=== PATIENT | female | born 1955 | race Caucasian/White ===

== ENCOUNTER 2018-01-27 08:37 | Day surgery (SDC) | payer OTHER | END 2018-01-27 11:05 | disposition home or self-care (01) | LOC: ORSCSDS 08:37 | PROVIDERS: Internal Medicine Gastroenterology | PROC: 0DBP8ZX Excision of Rectum, Via Natural or Artificial Opening Endoscopic, Diagnostic (ICD-10-PCS; principal; 2018-01-27 09:45) | PROC: 0DBK8ZX Excision of Ascending Colon, Via Natural or Artificial Opening Endoscopic, Diagnostic (ICD-10-PCS; principal; 2018-01-27 09:45) | DX: Z12.11 Encounter for screening for malignant neoplasm of colon (principal); C20 Malignant neoplasm of rectum; D12.2 Benign neoplasm of ascending colon; Z86.010 Personal history of colon polyps; K57.30 Diverticulosis of large intestine without perforation or abscess without bleeding | CPT/HCPCS: 88305; J1980 ==

== ENCOUNTER → 2022-07-21 | Outpatient (CLI) | payer OTHER | END | disposition home or self-care (01) | LOC: LAB SHORT 16:59 → LAB 16:59 | DX: L01.01 Non-bullous impetigo (principal) | CPT/HCPCS: 87070; 87077; 87147; 87186 ==

== ENCOUNTER 2023-03-02 12:04 | Day surgery (SDC) | payer OTHER ==
[~2023-03-02] VITALS: Ht 170.2 cm; Wt 85.6 kg
--- NOTE | 2023-03-02 14:19 | NUR ---
03/02/23 1419 Sera Meyers CLIP PLACED ASCENDING COLON.
[2023-03-02 14:54] VITALS: BP 127/71
== END 2023-03-02 14:58 | disposition home or self-care (01) ==
LOC: ORSCSDS 12:04
DX: Z12.11 Encounter for screening for malignant neoplasm of colon (principal); Z85.048 Personal history of other malignant neoplasm of rectum, rectosigmoid junction, and anus; Z86.010 Personal history of colon polyps; D12.0 Benign neoplasm of cecum; D12.2 Benign neoplasm of ascending colon; K57.30 Diverticulosis of large intestine without perforation or abscess without bleeding; Z68.30 Body mass index [BMI] 30.0-30.9, adult
CPT/HCPCS: 88305; J2704; J7120